=== PATIENT | female | born 1975 | race American Indian/Alaskan Native ===

== ENCOUNTER 2018-11-20 03:45 | Emergency (ER) | payer SELFPAY ==
[2018-11-20] MEDS ORDERED: ZOFRAN IV ONE (04:08)
[2018-11-20] MEDS ORDERED: TORADOL IV ONE (04:08)
[2018-11-20 04:33] LABS: Basophils % (Auto) 0.2 % (0.0-1.8); Eosinophils % (Auto) 0.6 % (0.0-4.3); Hematocrit 35.2 % (30.3-42.9); Hemoglobin 11.6 gm/dl (10.1-14.3); Lymphocytes # (Auto) 1.2 K/mm3 (1.2-5.4); Lymphocytes % (Auto) 34.6 % (13.4-35.0); Mean Corpuscular HGB Conc 33 % (30-34); Mean Corpuscular Volume 90 fl (79-97); Monocytes # (Auto) 0.6 K/mm3 (0.0-0.8); Monocytes % (Auto) 15.3 % (0.0-7.3); Platelet Count 213 K/mm3 (140-440); Red Blood Count 3.93 M/mm3 (3.65-5.03)
[2018-11-20 04:54] LABS: Alanine Aminotransferase 10 units/L (7-56); Albumin 4.5 g/dL (3.9-5); BUN/Creatinine Ratio 23; Blood Urea Nitrogen 21 mg/dL (7-17); Calcium 9.1 mg/dL (8.4-10.2); Hemolysis Index 3
[2018-11-20] MEDS ORDERED: NACL 0.9% 1000 ML 1,000 ML IV ONE (05:04)
--- NOTE | 2018-11-20 05:14 | Emergency Department Report ---
ED Abdominal Pain HPI - General Chief Complaint: Abdominal Pain Stated Complaint: RT SIDE PAIN Time Seen by Provider: 11/20/18 04:00 Source: patient Mode of arrival: Ambulatory Limitations: No Limitations - History of Present Illness Initial Comments: Patient is a 42-year-old [place] female with no past medical history presents to the ED with complaint of acute onset persistent severe right lower quadrant abdominal pain with nausea for the last 3 weeks worse in the last 2 days. Patient states that she was initially evaluated in this ED 10 days ago and diagnosed with right ovarian cease for which she was given pain medications and prescription to take her home. Patient states that she had been taking these medications since then but that the pain has worsened in the last 2 days side that about 6 hours ago she has not been able to sleep because of severe pain. Patient denies fever, chills, dizziness, dysuria, urinary frequency and urgency, vaginal bleeding, vaginal discharge, diarrhea, vomiting, chest pain, shortness of breath, low back pain or hematuria and cough. MD Complaint: abdominal pain (RLQ ), other (nausea) -: Gradual, week(s) (3) Location: RLQ, suprapubic Radiation: RLQ, suprapubic Migration to: no migration Severity: severe Severity scale (0 -10): 8 Quality: cramping, aching, sharp Consistency: constant Improves With: nothing Worsens With: nothing Associated Symptoms: denies other symptoms, nausea. denies: vomiting, diarrhea, fever, chills, constipation, dysuria, hematemesis, hematochezia, melena, hematuria, anorexia, syncope - Related Data Home Medications Medication Instructions Recorded Confirmed Last Taken oxyCODONE /ACETAMINOPHEN [Percocet 1 tab PO Q4H PRN 11/11/18 11/11/18 11/11/18 06:00 5/325 mg] Previous Rx's Medication Instructions Recorded Last Taken Type Ibuprofen [Motrin 800 MG tab] 800 mg PO Q8HR PRN #20 tablet 11/11/18 Unknown Rx Ondansetron [Zofran ODT TAB] 8 mg PO Q8HR #20 tab.rapdis 11/11/18 Unknown Rx Sulfamethoxazole/Trimethoprim 1 each PO BID #14 tablet 11/11/18 Unknown Rx [Bactrim DS TAB] Allergies Allergy/AdvReac Type Severity Reaction Status Date / Time No Known Allergies Allergy Verified 08/01/19 09:11 ED Review of Systems ROS: Stated complaint: RT SIDE PAIN Other details as noted in HPI Constitutional: denies: chills, fever Eyes: denies: eye pain, eye discharge, vision change ENT: denies: ear pain, throat pain Respiratory: denies: cough, shortness of breath, wheezing Cardiovascular: denies: chest pain, palpitations Endocrine: no symptoms reported Gastrointestinal: abdominal pain (RLQ ), nausea. denies: diarrhea Genitourinary: denies: urgency, dysuria, discharge Musculoskeletal: denies: back pain, joint swelling, arthralgia Skin: denies: rash, lesions Neurological: denies: headache, weakness, paresthesias Psychiatric: denies: anxiety, depression Hematological/Lymphatic: denies: easy bleeding, easy bruising ED Past Medical Hx - Past Medical History Previous Medical History?: Yes Additional medical history: Polycystic ovarian syndrome, Right ovarian cyst - Surgical History Past Surgical History?: Yes Additional Surgical History: 2 - Social History Smoking Status: Never Smoker Substance Use Type: Alcohol, Marijuana - Medications Home Medications: Home Medications Medication Instructions Recorded Confirmed Last Taken Type Ibuprofen [Motrin 800 MG tab] 800 mg PO Q8HR PRN #20 tablet 11/11/18 Unknown Rx Ondansetron [Zofran ODT TAB] 8 mg PO Q8HR #20 tab.rapdis 11/11/18 Unknown Rx Sulfamethoxazole/Trimethoprim 1 each PO BID #14 tablet 11/11/18 Unknown Rx [Bactrim DS TAB] oxyCODONE /ACETAMINOPHEN [Percocet 1 tab PO Q4H PRN 11/11/18 11/11/18 11/11/18 06:00 History 5/325 mg] ED Physical Exam - General Limitations: No Limitations General appearance: alert, in no apparent distress - Head Head exam: Present: atraumatic, normocephalic, normal inspection - Eye Eye exam: Present: normal appearance, PERRL, EOMI. Absent: scleral icterus, conjunctival injection, nystagmus, periorbital swelling, periorbital tenderness, other Pupils: Present: normal accommodation - ENT ENT exam: Present: normal exam, normal orophraynx, mucous membranes moist, TM's normal bilaterally, normal external ear exam - Neck Neck exam: Present: normal inspection, full ROM. Absent: tenderness, lymphadenopathy, thyromegaly - Respiratory Respiratory exam: Present: normal lung sounds bilaterally. Absent: respiratory distress, wheezes, rales, rhonchi, chest wall tenderness, accessory muscle use, decreased breath sounds, prolonged expiratory - Cardiovascular Cardiovascular Exam: Present: regular rate, normal rhythm, normal heart sounds. Absent: systolic murmur, diastolic murmur, rubs, gallop - GI/Abdominal GI/Abdominal exam: Present: soft, tenderness (RLQ), guarding, normal bowel sounds. Absent: rebound, rigid, hyperactive bowel sounds, hypoactive bowel sounds, organomegaly - Rectal Rectal exam: Present: deferred - Extremities Exam Extremities exam: Present: normal inspection, full ROM, normal capillary refill - Back Exam Back exam: Present: normal inspection, full ROM. Absent: tenderness, CVA tenderness (L), muscle spasm, paraspinal tenderness, vertebral tenderness - Neurological Exam Neurological exam: Present: alert, oriented X3, CN II-XII intact, normal gait, reflexes normal - Psychiatric Psychiatric exam: Present: normal affect, normal mood - Skin Skin exam: Present: warm, dry, intact, normal color. Absent: rash ED Course Vital Signs 11/20/18 11/20/18 11/20/18 03:49 04:34 05:04 Temperature 98.4 F Pulse Rate 76 Respiratory 18 16 16 Rate Blood Pressure 145/100 O2 Sat by Pulse 99 Oximetry - Reevaluation(s) Reevaluation #1: 11/20/18 05:18 This is a 42-year-old female who presented with a ED with acute onset persiste nce of the right lower quadrant abdominal pain with nausea. In the ED, patient is alert and oriented 3 and is not in distress but appears to be in severe pain as she doubled down on knees while laying on the bed. Vital signs are stable. Labs were drawn and patient was treated for pain, and abdomen and pelvic CT scan with contrast was also ordered. Patient care transferred to Mr. Wai davey PA-C at shift change at 0700 hours 11/20/18 07:09 ED Medical Decision Making - Lab Data Result diagrams: 11/20/18 04:14 11/20/18 04:14 - Radiology Data Radiology results: report reviewed, image reviewed - Medical Decision Making This is a 42-year-old female who presented with a ED with acute onset persistence of the right lower quadrant abdominal pain with nausea. In the ED, patient is alert and oriented 3 and is not in distress but appears to be in severe pain as she doubled down on knees while laying on the bed. Vital signs are stable. Labs were drawn and patient was treated for pain, and abdomen and pelvic CT scan with contrast was also ordered. Patient care transferred to Idalia Wai Kennedy [employer] at shift change at 0700 hours - Differential Diagnosis Abdominal pain; Appendicitis; Pancreatitis; Gallstones, UTI; Ovarian cyst Critical care attestation.: If time is entered above; I have spent that time in minutes in the direct care of this critically ill patient, excluding procedure time. ED Disposition Clinical Impression: Acute abdominal pain in right lower quadrant Acute pancreatitis Qualifiers: Pancreatitis type: unspecified pancreatitis type Acute pancreatitis complication: unspecified Qualified Code(s): K85.90 - Acute pancreatitis without necrosis or infection, unspecified Condition: Stable Instructions: Abdominal Pain (ED)
[2018-11-20 05:52] LABS: Bilirubin,Urine NEG (Negative); Blood,Urine NEG (Negative); Color,Urine Yellow (Yellow); Mucus,Urine FEW /HPF; Protein,Urine <15 mg/dL mg/dL (Negative); Urobilinogen,Urine < 2.0 mg/dL (<2.0)
[2018-11-20 05:56] LABS: HCG Qualitative,Urine Negative (Negative)
--- NOTE | 2018-11-20 07:41 | Cat Scan Report ---
CT ABDOMEN AND PELVIS WITH CONTRAST HISTORY: RLQ abdominal pain. COMPARISON: None. TECHNIQUE: CT images of the abdomen and pelvis were obtained following administration of intravenous contrast. All CT scans at this location are performed using CT dose reduction for ALARA by means of automated exposure control. CONTRAST: 100 ml of intravenous contrast administered. FINDINGS: Lungs/bones: Lung bases are clear. No acute osseous abnormality. Abdomen/pelvis: The liver, gallbladder, spleen, pancreas, adrenals, kidneys, and proximal GI tract a ppear normal. Urinary bladder and uterus appear unremarkable. There is a simple right-sided ovarian cyst measuring 4.6 cm on image #74 of series 4. No pelvic free fluid. No acute colonic abnormality. The terminal ile um and appendix appear normal. IMPRESSION: 1. Simple right-sided ovarian cyst as above. Otherwise nothing acute identified. Signer Name: Andrea Coates MD Signed: 11/20/2018 7:36 AM Workstation Name: [id number]
[2018-11-20] MEDS ORDERED: BENADRYL IV STA (09:02)
[2018-11-20] MEDS ORDERED: MORPHINE IV STA (09:02)
[2018-11-20] MEDS ORDERED: TORADOL IV STA (09:02)
--- NOTE | 2018-11-20 09:02 | Emergency Department Report ---
[facility] Doc - Documentation Documentation: 42-year-old female Miss Bailey seen by Mikal King for right-sided pain. Reports a 3 week history of progressively worsening right lower quadrant pain that was originally found to be secondary to an ovarian cyst. She has been taken some prescribed medication. His symptoms do persist. Negative follow-up with [facility]. CT scans were were [facility] were obtained and showed a 4.6 cm cyst to the right ovary, otherwise simple complex nature no stranding. Lipase was slightly elevated at 210 but there is no pancreatic stranding or alcohol abscess found on the CT. Pain was controlled with Toradol IV. She has not yet follow- up with [facility] did discuss in detail the need to follow with [facility] for definitive management of her ovarian cysts. Hemodynamically stable, afebrile. No vaginal bleeding or vaginal vaginal vaginal discharge. She does tolerate oral with no complication. Plan is to is to treat the ED pain with Toradol tablets in conjunction with having her to follow with [facility] for definitive management of this simple cyst. In regards to the elevated lipase. We'll place her on a liquid diet and with the exception of her medications for the next 48 hours and then reevaluate her lipase that status. She should develop any fever,, vomiting, worsening epigastric pain, then we will repeat AYO evaluate her pancreas at that time. Her blood sugar sugars are normal.
[2018-11-20 10:39] VITALS: BP 132/72
== END 2018-11-20 10:37 | disposition home or self-care (01) ==
LOC: ED 03:45
DX: K85.90 Acute pancreatitis without necrosis or infection, unspecified (principal); F12.10 Cannabis abuse, uncomplicated; Z79.899 Other long term (current) drug therapy
CPT/HCPCS: 36415; 74177; 80053; 81001; 81025; 83690; 85025; 96374; 96375; 96376; 99284; J1200; J1885; J2270; J2405; J7030; Q9967